=== PATIENT | female | born 1945 | race Caucasian/White ===

== ENCOUNTER → 2016-12-04 | Day surgery (SDC) | payer MEDICARE, OTHER ==
[~2016-12-04] VITALS: Ht 152.4 cm; Wt 65.3 kg
[~2016-12-04] MED LIST: 0.9% Sodium Chloride 1,000 ML IV SCH; ALBU8.5H2 INHALATION; ALBU90AE IH; ASPI-973 PO; CALC600T12 PO; GEMF600T3 PO; MULT1CAP33 PO; OMEG100020 PO; OMEP20TA24 PO; OXYC1TAB24 PO; ROB500 PO; SYMINH INHALATION; Sodium Chloride LOK Flush 10 mL Syringe IV PRN; fentaNYL-PF 50 mCg/mL 2 mL Inj IVPUSH PRN
[2016-12-04 07:54] VITALS: BP 137/66; PULSE 69; RESP 14; O2SAT 94
[2016-12-04 08:38] VITALS: BP 118/60; PULSE 67; RESP 14; O2SAT 91
[2016-12-04 08:49] VITALS: BP 120/62; PULSE 62; RESP 14; O2SAT 92
[2016-12-04 08:52] VITALS: BP 120/58; PULSE 56; RESP 16; O2SAT 97
--- NOTE | 2016-12-04 09:19 | ENDO ---
[address] [address] ENDOSCOPY PROCEDURE PATIENT: ALEX ROBBINS V : 1945 MR#: [id number] ADMIT: 12/04/2016 JOB ID: [id number] DATE: 12/04/2016 TYPE OF OPERATION: Colonoscopy. PREOPERATIVE DIAGNOSIS(ES): Rectal bleeding. POSTOPERATIVE DIAGNOSIS(ES): Severe sigmoid diverticulosis. ANESTHESIA: 1. Fentanyl 75 mcg. 2. Versed 3 mg IV administered. COMPLICATIONS: None. BLOOD LOSS: Minimal. DESCRIPTION OF PROCEDURE: After risks and benefits were explained to the patient, informed consent was obtained. After anesthesia was administered, a colonoscope was then inserted from the rectum to the cecum. Mucosa carefully examined. The prep of the patient was excellent. After procedure was done, the scope withdrawn and procedure terminated. FINDINGS: Upon inspection of the anus, no masses, hemorrhoids, ulcers, fissures that were seen. Throughout the entire examination, there was severe sigmoid diverticulosis, nonbleeding. No polyps or masses were seen. Retroflexion was normal. IMPRESSION: Severe sigmoid diverticulosis. RECOMMENDATION: 1. High-fiber diet. 2. Repeat colonoscopy 10 years for colorectal cancer screening.
== END | disposition home or self-care (01) ==
LOC: END 00:47
PROVIDERS: ATTEND Internal Medicine Gastroenterology
DX: K62.5 Hemorrhage of anus and rectum (principal); K57.30 Diverticulosis of large intestine without perforation or abscess without bleeding; E78.5 Hyperlipidemia, unspecified; J44.9 Chronic obstructive pulmonary disease, unspecified; K21.9 Gastro-esophageal reflux disease without esophagitis; Z87.891 Personal history of nicotine dependence; Z79.51 Long term (current) use of inhaled steroids
CPT/HCPCS: 45378; G0500; J2250; J3010; J7030